=== PATIENT | female | born 1960 | race Caucasian/White ===

== ENCOUNTER 2017-01-29 11:15 | Day surgery (SDC) | payer OTHER ==
[~2017-01-29] VITALS: Ht 157.5 cm; Wt 56.7 kg
[~2017-01-29 11:15] MED LIST: 0.9% Sodium Chloride 1,000 ML IV SCH; ALBU18HF INH; ATRINH INH; BECL8.7A6 INHALATION; DICY20TA10 PO; ESCI5TAB PO; GABA-500 PO; LORA10CA PO; Lactated Ringer's 1,000 ML IV ONE; Lactated Ringer's 1,000 ML IV SCH; MetoCLOpramide 5 mg/mL 2 mL Inj IVPUSH PRN; Ondansetron 2 mg/mL 2 mL Inj IVPUSH PRN; Sodium Chloride LOK Flush 10 mL Syringe IV PRN; TIZA4TAB4 PO; TRAZ-118 PO; fentaNYL-PF 50 mCg/mL 2 mL Inj IVPUSH PRN
[2017-01-29 11:43] VITALS: BP 141/104; PULSE 98; RESP 18; O2SAT 96
[2017-01-29 11:52] VITALS: BP 159/108; PULSE 90; RESP 16; O2SAT 97
--- NOTE | 2017-01-29 12:06 | PCM.HPANE ---
Patient Data Surgeon Admitting Provider: Attending Provider:Jhony Bajwa MD Primary Care Physician:Other,Physician Other Provider: Reason for Visit Diarrhea Ht/WT & BMI Height (Feet): 5 Height (Inches): 2 Weight (Kilograms): 56.70 Body Mass Index 23.00 Allergies Coded Allergies: bupropion (Verified Allergy, Severe, HANDS, FEET, FACE SWELL, 07/03/16) NSAIDS (Non-Steroidal Anti-Inflamma (Verified Allergy, Intermediate, 07/03) IBUPROFEN IS OKAY ketorolac (Verified Allergy, Intermediate, RASH, JOINT PAIN, 07/03/16) Penicillins (Verified Allergy, Unknown, Rash, 07/01/16) acetaminophen (Verified Allergy, Unknown, VOMITING., 07/01/16) hydrocodone (Verified Allergy, Unknown, VOMITING., 07/01/16) Past Anesthesia History Anesthesia History: Denies:: Abnormal Airway, Anesthesia Reactions, Difficult Intubation, Fam Anesthesia Reaction, Fam Malignant Hypertherm, Malignant Hyperthermia Diabetes History Hx Diabetes?: No MRSA MRSA: No Medications Home Meds Incl Beta Mahin: No Reported Medications Tizanidine 4 Mg Tablet4 Mg PO TID 01/28/17 Ipratropium [place] (Atrovent HFA)200 Puff/12.9 Gm Inhaler2 Puff INH QID #1 INH Ref 0 07/03/16 Albuterol Sulfate (Ventolin HFA Inhaler)200 Puff/18 Gm Inhaler1 Puff INH Q4 PRN For Wheezing #1 INHALER Ref 0 07/02/16 Trazodone 100 Mg [id number] Mg PO BID Ref 0 07/02/16 Gabapentin 100 Mg [id number] Mg PO TID 30 Days Ref 0 07/02/16 Dicyclomine 20 Mg Ejclhs93 Mg PO QID PRN For GI Cramps Ref 0 07/02/16 Loratadine (Claritin)10 Mg Ygbhice33 Mg PO DAILY Ref 0 07/02/16 Discontinued Reported Medications Beclomethasone Dipropionate (Qvar)8.7 Gm Aer.w.adap1 Puff INHALATION BID #8.7 GM 01/28/17 Escitalopram Oxalate (Lexapro)5 Mg Tablet5 Mg PO DAILY 30 Days Ref 0 07/02/16 History History of ENT Problems?: No HEENT History: Denies:: Abnormal Airway Cataracts Difficult Intubation Dysphagia Glaucoma Hearing Problem Sinus Problem TMJ Denture Type: Partial- Upper Teeth Condition: Missing Teeth Other HEENT Pertinent History: maxillary flipper Hx of Heart Problems?: No Cardiovascular History: Denies:: AICD Atrial Fibrillation Chest Pain Hypertension Pacemaker Valvular Heart Disease Hx of Respiratory Problem?: Yes Respiratory History: Positive for:: Asthma COPD Pneumonia Denies:: Cough Hemoptysis Tuberculosis Other History/Comment Breathing is at baseline Hx Neurologic Problems?: No Neurological History: Denies:: CVA Hx of GI Problems?: Yes Other History/Comment chronic diarrhea Hx of Problems?: No Female Hx: Denies:: Currently Hx Musculoskeletal Problems?: Yes Musculoskeletal History: Positive for:: Fibromyalgia Denies:: Joint Replacement Psycho Social History: Positive for:: Anxiety Hx Depression Hx Surgeries?: Yes (appy, ganglion cyst, partial hysterectomy ) Hx Any Other Health Problems?: Yes Hx Diabetes: No Hx Alcohol Use: No Stop/Bang Treated for Sleep Apnea?: No Do You Have a CPAP Machine?: No S-Snoring: Do You Snore Loudly: No T-Tired: feel tired, fatigued: No O-Obsered: Observed not breath: No P-Blood Pressure: treated: No B- Body Mass Index > 35 kg/m2: No A- Age over 50: Yes N- Neck Large Circumference: No G- Gender Male: No BEKAH Total Score: 1 Risk Assessment Category Category 1A: Patient has history of documented sleep apnea, and HAS NOT received any narcotic, sedative or anesthesia administration during this stay. Category 1B: Patient has history of documented sleep apnea, and HAS received any narcotic , sedative or anesthesia administration during this stay Category 2: Patient has SUSPECTED Obstructive Sleep Apnea, and HAS received any narcotic , sedative or anesthesia administration during this stay. Category 3: Patient has SUSPECTED Obstructive Sleep Apnea and HAS NOT received narcotic, sedative or anesthesia administration during this stay. Category 4: Outpatient in Procedural Areas with known sleep apnea or who screen positive for High Risk via the STOP/BANG questionnaire. Exam Exam Vital Signs Vital Signs Date Time Temp Pulse Resp B/P Pulse Ox O2 Delivery O2 Flow Rate FiO2 01/29/17 11:52 90 16 159/108 97 Room Air 01/29/17 11:43 36.5 98 18 141/104 96 Room Air General Appearance: Alert, Oriented X3 HEENT/AIRWAY: MP 2, Neck Movement (FROM), Other (Missing top front teeth) Lungs: Clear to Auscultation, Clear to Percussion Heart: Exam Unremarkable, Regular Rate/Rhythm Plan Impression Patient chart reviewed, patient interviewed and anesthestic plan with risks, benefits, and alternatives discussed, and informed consent obtained. ASA Physical Status: ASA2 Mod Systemic Disease Anesthetic Plan: MAC Bene/Risks/Altern/Consents: Yes HP Complete Prior to Induction: Yes Urban Forte MD Jan 29, 2017 12:06
[2017-01-29 12:46] VITALS: BP 136/100; PULSE 99; RESP 12; O2SAT 97
--- NOTE | 2017-01-29 12:46 | PCM.ANEP1 ---
Post Anesthesia PACU Phase 1 Assessment Vital Signs Vital Signs Date Time Temp Pulse Resp B/P Pulse Ox O2 Delivery O2 Flow Rate FiO2 01/29/17 11:52 90 16 159/108 97 Room Air 01/29/17 11:43 36.5 98 18 141/104 96 Room Air Anesthetic Administered: MAC Level of Alertness: Awake, talking FOOTE's with Equal Strength: Yes Pain: No Nausea or Vomiting: No CV Function & Hydration Stable: Yes Airway Device: Oxygen Delivery: Room Air Lungs: Clear to Auscultation, Clear to Percussion PACU Phase 2 Assessment Complications: No Follow up Care: No Patient Instructions Provided: N/A Comments See anesth record for PACU VS. PACU VSS Urban Forte MD Jan 29, 2017 12:46
[2017-01-29 12:55] VITALS: BP 143/104; PULSE 92; RESP 12; O2SAT 96
[2017-01-29 13:05] VITALS: BP 141/86; PULSE 90; RESP 12; O2SAT 98
--- NOTE | 2017-01-29 13:38 | ENDO ---
[address] [address] ENDOSCOPY PROCEDURE PATIENT: VENKAT CREWS : 1960 MR#: [id number] ADMIT: 01/29/2017 JOB ID: [id number] DATE: 01/29/2017 TYPE OF OPERATION: Colonoscopy with biopsy. PREOPERATIVE DIAGNOSIS(ES): Diarrhea. POSTOPERATIVE DIAGNOSIS(ES): 1. Sigmoid diverticulosis seen in the ascending colon. 2. Otherwise normal colonoscopy status post biopsy. ANESTHESIA: Monitored anesthesia care. COMPLICATIONS: None. BLOOD LOSS: Minimal. DESCRIPTION OF PROCEDURE: After risks and benefits were explained to the patient, informed consent was obtained. After anesthesia administered, colonoscope was then inserted from the rectum to the terminal ileum and mucosa carefully examined. Prep of the patient was excellent. After the procedure was done, the scope was withdrawn and the procedure terminated. FINDINGS: Upon inspection of the anus, no masses, hemorrhoids, ulcers, or fissures that were seen. Throughout the entire examination, there was a single diverticulum seen in the ascending colon. Biopsies taken at terminal ileum and random colon. Retroflexion was normal. IMPRESSION: Single diverticulum in the ascending colon. RECOMMENDATION: 1. Await pathology results. 2. Followup in GI clinic as needed.
--- NOTE | 2017-02-01 11:59 | PATH ---
SURGICAL PATHOLOGY Attending Physician:Jhony Bajwa MD CASE STATUS: Signed Out PATIENT NAME: VENKAT CREWS PID: [id number] : 1960 DATE COLLECTED:01/29/2017 20:12 SPECIMEN: 1: Ileum, Biopsy 2: Colon, Biopsy CLINICAL HISTORY: 1). TERMINAL ILEUM BIOPSY 2). RANDOM COLON BIOPSY FINAL DIAGNOSIS: 1.TERMINAL ILEUM BIOPSY: FRAGMENTS OF NORMAL-APPEARING TERMINAL ILEUM MUCOSA. Negative for granulomas. Negative for significant inflammation, dysplasia and malignancy. 2.RANDOM COLON BIOPSIES: FRAGMENTS OF NORMAL-APPEARING COLON MUCOSA. Negative for significant architectural distortion. Negative for significant inflammation, dysplasia and malignancy. ICD10 R19.7 GROSS DESCRIPTION: Received are two formalin-filled containers, both labeled with the patient' s name: 1. Received in formalin, labeled with the patient' s name and "terminal ileum BX", are two fragments of randolph, soft tissue ranging in size from 0.2 x 0.1 x 0.1 cm to 0.2 x 0.2 x 0.2 cm. All fragments are totally submitted in cassette 1A. 2. Received in formalin, labeled with the patient' s name and "random colon BX", are multiple fragments of randolph, soft tissue ranging in size from 0.1 x 0.1 x 0.1 cm to 0.2 x 0.1 x 0.1 cm. All fragments are totally submitted in cassette 2A. ([id number]) MICRO DESCRIPTION: See diagnosis. ICD-9 CODES: CPT CODES: 1: 02501 2: 18187 Electronically Signed Out Lokesh Flores MD [facility] Pathology [facility] [address], [place] [address] Technical component performed at [facility], [facility] [address], [place], [address]
== END 2017-01-29 23:59 | disposition home or self-care (01) ==
LOC: END 11:15
PROVIDERS: ATTEND Internal Medicine Gastroenterology
DX: R19.7 Diarrhea, unspecified (principal); K57.30 Diverticulosis of large intestine without perforation or abscess without bleeding; J44.9 Chronic obstructive pulmonary disease, unspecified; E78.00 Pure hypercholesterolemia, unspecified; G43.909 Migraine, unspecified, not intractable, without status migrainosus; F31.9 Bipolar disorder, unspecified; M79.7 Fibromyalgia; F12.90 Cannabis use, unspecified, uncomplicated; F17.210 Nicotine dependence, cigarettes, uncomplicated; Z79.51 Long term (current) use of inhaled steroids
CPT/HCPCS: 45380; J7120